=== PATIENT | male | born 1995 | race Two or more races ===

== ENCOUNTER 2019-01-11 16:52 | Emergency (ER) | payer OTHER ==
[~2019-01-11] VITALS: Ht 180.3 cm; Wt 73.1 kg
[2019-01-11 17:01] VITALS: BP 143/71
== END 2019-01-11 18:25 | disposition home or self-care (01) ==
LOC: ED 17:51
DX: S62.231A Other displaced fracture of base of first metacarpal bone, right hand, initial encounter for closed fracture (principal); X58.XXXA Exposure to other specified factors, initial encounter; Y93.89 Activity, other specified; Y92.89 Other specified places as the place of occurrence of the external cause; Y99.8 Other external cause status
CPT/HCPCS: 29125; 73130; 96372; 99283; J1885

== ENCOUNTER 2020-03-02 03:00 | Emergency (ER) | payer OTHER ==
[~2020-03-02] VITALS: Ht 177.8 cm; Wt 68.0 kg
--- NOTE | 2020-03-02 03:00 | NUR ---
PT BIB [facility] FOR ACUTE ALCOHOL INTOXICATION. PT REFUSING ALL VS MACHINES. PT RESTING IN [facility] AT THIS TIME WITH DR MOORE AT FOR PT HISTORY AND ASSESSMENT.
[2020-03-02 03:33] VITALS: BP 108/58
--- NOTE | 2020-03-02 03:33 | NUR ---
PT ALLOWS THIS RN TO OBTAIN VS AT THIS TIME. PT RESTING COMFORTABLY IN GURNEY WITH NADN. PT DENIES ANY NEEDS AT THIS TIME.
--- NOTE | 2020-03-02 04:39 | NUR ---
PT LEFT BUILDING WITHOUT BEING SEEN. 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 PT LEFT WITHOUT D/C PAPERWORK OR MEDICAL ADVICE.
== END 2020-03-02 04:42 | disposition left against medical advice (07) ==
LOC: ED 03:30
DX: F10.120 Alcohol abuse with intoxication, uncomplicated (principal); Y90.9 Presence of alcohol in blood, level not specified
CPT/HCPCS: 99283